=== PATIENT | male | born 1990 | race Caucasian/White ===

== ENCOUNTER 2017-07-15 15:36 | Emergency (ER) | payer OTHER ==
--- NOTE | 2017-07-15 16:46 | RADIOLOGY REPORT (SQ) ---
EXAM DESCRIPTION: CT HEAD WITHOUT COMPLETED DATE/TIME: 07/15/2017 4:32 pm REASON FOR STUDY: fall head injury COMPARISON: None. TECHNIQUE: Axial images acquired through the brain without intravenous contrast. Images reviewed wi th bone, brain and subdural windows. Images stored on PACS. All CT scanners at this facility use dose modulation, iterative reconstruction, and/or weight based d osing when appropriate to reduce radiation dose to as low as reasonably achievable (ALARA). [facility]: Dose Right [facility]: CareDose [facility]: Dose Right [facility]: Teradose 4D [facility]: [employer] RADIATION DOSE: CT Rad equipment meets quality standard of care and radiation dose reduction techniq ues were employed. CTDIvol: 64.6 mGy. DLP: 1034 mGy-cm. mGy. LIMITATIONS: None. FINDINGS: VENTRICLES: Normal size and contour. CEREBRUM: No masses. No hemorrhage. No midline shift. No evidence for acute infarction. Normal gra y/white matter differentiation. No areas of low density in the white matter. CEREBELLUM: No masses. No hemorrhage. No alteration of density. No evidence for acute infarction. EXTRAAXIAL SPACES: No fluid collections. No masses. ORBITS AND GLOBE: No intra- or extraconal masses. Normal contour of globe without masses. CALVARIUM: No fracture. PARANASAL SINUSES: No fluid or mucosal thickening. SOFT TISSUES: No mass or hematoma. OTHER: No other significant finding. IMPRESSION: NORMAL BRAIN CT WITHOUT CONTRAST. EVIDENCE OF ACUTE STROKE: NO. COMMENT: Quality ID # [id number]: Final reports with documentation of one or more dose reduction techniques (e.g., Automated exposure control, adjustment of the mA and/or kV according to patient size, use of iterative reconstruction technique) TECHNICAL DOCUMENTATION: JOB ID: [id number]- All Rights Reserved
--- NOTE | 2017-07-15 17:04 | ER Document Report ---
ED General - General Chief Complaint: Fall Stated Complaint: HEAD INJURY Time Seen by Provider: 07/15/17 16:15 TRAVEL OUTSIDE OF THE [place] IN LAST 30 DAYS: No - HPI Patient complains to provider of: Close head injury Notes: Patient coming in for evaluation close head injury. Patient states fell on some steps a few days ago this morning workup dizzy concerned about concussion however also is having some nausea patient denies any fevers chills vomiting or diarrhea. Patient ambulating without difficulty. No signs of acute distress upon my evaluation denies any medications denies any blood thinning medications. - Related Data Allergies/Adverse Reactions: No Known Allergies Allergy (Verified 07/15/17 15:52) Home Medications: Current Home Medications Bupropion HCl [Wellbutrin 75 Mg Tablet] 150 mg PO BID 07/15/17 [History] Past Medical History - Social History Smoking Status: Never Smoker Frequency of alcohol use: None Drug Abuse: None Family History: Reviewed & Not Pertinent Patient has suicidal ideation: No Patient has homicidal ideation: No Renal/ Medical History: Denies: Hx Peritoneal Dialysis Past Surgical History: Reports: Hx Tonsillectomy Review of Systems - Review of Systems Constitutional: Other - Head injury with nausea and dizziness EENT: No symptoms reported Cardiovascular: No symptoms reported Respiratory: No symptoms reported Gastrointestinal: No symptoms reported Genitourinary: No symptoms reported Male Genitourinary: No symptoms reported Musculoskeletal: No symptoms reported Skin: No symptoms reported Hematologic/Lymphatic: No symptoms reported Neurological/Psychological: No symptoms reported Physical Exam - Vital signs Vitals: Temp Pulse Resp BP Pulse Ox 98.5 F 65 16 151/81 H 99 07/15/17 15:49 07/15/17 15:49 07/15/17 15:49 07/15/17 15:49 07/15/17 15:49 Interpretation: Normal - General General appearance: Appears well, Alert - HEENT Head: Normocephalic, Atraumatic Eyes: Normal Pupils: PERRL - Respiratory Respiratory status: No respiratory distress Chest status: Nontender Breath sounds: Normal Chest palpation: Normal - Cardiovascular Rhythm: Regular Heart sounds: Normal auscultation Murmur: No - Abdominal Inspection: Normal Distension: No distension Bowel sounds: Normal Tenderness: Nontender Organomegaly: No organomegaly - Back Back: Normal, Nontender - Extremities General upper extremity: Normal inspection, Nontender, Normal color, Normal ROM , Normal temperature General lower extremity: Normal inspection, Nontender, Normal color, Normal ROM , Normal temperature, Normal weight bearing. No: Cyn's sign - Neurological Neuro grossly intact: Yes Cognition: Normal Orientation: AAOx4 Jim Coma Scale Eye Opening: Spontaneous [place] Coma Scale Verbal: Oriented [place] Coma Scale Motor: Obeys Commands Jim Coma Scale Total: 15 Speech: Normal Motor strength normal: LUE, RUE, LLE, RLE Sensory: Normal - Psychological Associated symptoms: Normal affect, Normal mood - Skin Skin Temperature: Warm Skin Moisture: Dry Skin Color: Normal Course - Re-evaluation Re-evalutation: 07/15/17 20:53 CT scan was negative. More likely postconcussive syndrome or concussive syndrome. Patient will be discharged home we will give meclizine for dizziness. Patient is to stay well-hydrated patient will be discharged home - Vital Signs Vital signs: Temp Pulse Resp BP Pulse Ox 97.7 F 69 18 129/77 H 98 07/15/17 17:14 07/15/17 17:14 07/15/17 17:14 07/15/17 17:14 07/15/17 17:14 Discharge - Discharge Clinical Impression: Closed head injury Qualifiers: Encounter type: initial encounter Qualified Code(s): S09.90XA - Unspecified injury of head, initial encounter Condition: Good Disposition: HOME, SELF-CARE Instructions: Concussion ([facility]), Head Injury Precautions ([facility]), Post-Concussion Syndrome ([facility]) Additional Instructions: Your CT scan does not show any signs of any significant pathology therefore we will discharge her home with meclizine to help out with your symptoms. More likely you have a postconcussive syndrome. This will take time to resolve. Prescriptions: Meclizine HCl [Antivert 25 mg Tablet] 25 mg PO TID PRN #21 tablet PRN Reason: Forms: Return to Work
[2017-07-15 17:17] VITALS: BP 129/77
== END 2017-07-15 17:14 | disposition home or self-care (01) ==
LOC: ER 15:36
DX: S09.90XA Unspecified injury of head, initial encounter (principal); R11.0 Nausea; R42 Dizziness and giddiness; W10.9XXA Fall (on) (from) unspecified stairs and steps, initial encounter
CPT/HCPCS: 70450; 99284

== ENCOUNTER 2017-08-18 21:35 | Emergency (ER) | payer OTHER ==
[2017-08-18 22:45] LABS: ABSOLUTE LYMPHOCYTES (AUTO) 1.4 10^3/uL (0.5-4.7); ABSOLUTE MONOCYTES (AUTO) 0.7 10^3/uL (0.1-1.4); ABSOLUTE NEUT (AUTO) 10.7 10^3/uL (1.7-8.2); BASOPHILS % (AUTO) 0.2 % (0-2); EOSINOPHILS % (AUTO) 0.4 % (0-6); HEMATOCRIT 44.4 % (37.9-51.0); HEMOGLOBIN 14.9 g/dL (13.5-17.0); LYMPHOCYTES % (AUTO) 11.1 % (13-45); MEAN CORPUSCULAR HEMOGLOBIN 29.5 pg (27.0-33.4); MEAN CORPUSCULAR HGB CONC 33.6 g/dL (32.0-36.0); MEAN CORPUSCULAR VOLUME 88 fl (80-97); MONOCYTES % (AUTO) 5.3 % (3-13); PLATELET COUNT 222 10^3/uL (150-450); RED BLOOD COUNT 5.05 10^6/uL (4.35-5.55); RED CELL DISTRIBUTION WIDTH 13.3 % (11.5-14.0); TOTAL CELLS COUNTED % (AUTO) 100 %; WHITE BLOOD COUNT 12.9 10^3/uL (4.0-10.5)
[2017-08-18 23:04] LABS: ALANINE AMINOTRANSFERASE 60 U/L (21-72); ALBUMIN 4.2 g/dL (3.5-5.0); ALKALINE PHOSPHATASE 107 U/L (38-126); ANION GAP 10 (5-19); ASPARTATE AMINO TRANSFERASE 34 U/L (17-59); BILIRUBIN,DIRECT 0.4 mg/dL (0.0-0.4); BILIRUBIN,TOTAL 0.6 mg/dL (0.2-1.3); BLOOD UREA NITROGEN 12 mg/dL (7-20); CALCIUM 9.6 mg/dL (8.4-10.2); CARBON DIOXIDE 29 mmol/L (22-30); CHLORIDE 100 mmol/L (98-107); GLUCOSE 110 mg/dL (75-110); POTASSIUM 4.5 mmol/L (3.6-5.0); SODIUM 138.5 mmol/L (137-145); TOTAL PROTEIN 7.5 g/dL (6.3-8.2)
[2017-08-18 23:07] LABS: APPEARANCE,URINE CLEAR; BILIRUBIN,URINE NEGATIVE (NEGATIVE); COLOR,URINE YELLOW; GLUCOSE, URINE NEGATIVE (NEGATIVE); KETONES,URINE TRACE mg/dL (NEGATIVE); LEUKOCYTE ESTERASE,URINE NEGATIVE (NEGATIVE); NITRITE,URINE NEGATIVE (NEGATIVE); PROTEIN,URINE NEGATIVE (NEGATIVE); URINE SPECIFIC GRAVITY 1.025
[2017-08-18] MEDS ORDERED: ONDANSETRON HCL INJ/PF 4 MG/2 ML SDV IV ONE (23:14)
[2017-08-18] MEDS ORDERED: NORMAL SALINE 1000 ML 1,000 ML IV ONE (23:14)
[2017-08-18] MEDS ORDERED: MORPHINE SULFATE 10 MG/ML INJ IV PRN (23:17)
[2017-08-18 23:38] LABS: LIPASE 128.8 U/L (23-300)
--- NOTE | 2017-08-19 00:10 | ER Document Report ---
ED General - General Chief Complaint: Nausea/Vomiting Stated Complaint: VOMITING/STOMACH PAIN Time Seen by Provider: 08/18/17 22:15 Notes: Patient is a 27-year-old male without past medical history, no prior surgical history who presents with 48 hours of right-sided abdominal pain with associated vomiting and diarrhea. Patient describes the pain being localized to the entire right side of his abdomen mostly to the right upper abdomen. He describes it as a severe, constant, throbbing pain. Nothing improves or worsens the pain. He notes he has had persistent vomiting and diarrhea in association with the abdominal pain. The symptoms did start prior to the onset of the abdominal pain. He has not seen his primary care doctor regarding today' s concerns. He did see an urgent care yesterday and was prescribed Zofran but states that this does not help his vomiting which is part of the reason he came to the emergency department today. He has not had any fever. TRAVEL OUTSIDE OF THE [place] IN LAST 30 DAYS: No - Related Data Allergies/Adverse Reactions: No Known Allergies Allergy (Verified 07/15/17 15:52) Past Medical History - General Information source: Patient - Social History Smoking Status: Never Smoker Frequency of alcohol use: None Drug Abuse: None Lives with: Spouse/Significant other Family History: Reviewed & Not Pertinent Renal/ Medical History: Denies: Hx Peritoneal Dialysis Past Surgical History: Reports: Hx Tonsillectomy Review of Systems - Review of Systems Notes: Constitutional: Negative for fever. HENT: Negative for sore throat. Eyes: Negative for visual changes. Cardiovascular: Negative for chest pain. Respiratory: Negative for shortness of breath. Gastrointestinal: Positive for abdominal pain, vomiting and diarrhea Genitourinary: Negative for dysuria. Musculoskeletal: Negative for back pain. Skin: Negative for rash. Neurological: Negative for headaches, weakness or numbness. 10 point ROS negative except as marked above and in HPI. Physical Exam - Vital signs Vitals: Temp Pulse BP Pulse Ox 98.7 F 75 134/86 H 99 08/18/17 22:12 08/18/17 22:12 08/18/17 22:12 08/18/17 22:12 Interpretation: Normal Notes: PHYSICAL EXAMINATION: GENERAL: Appears moderately uncomfortable but in no acute distress. HEAD: Atraumatic, normocephalic. EYES: Pupils equal round and reactive to light, extraocular movements intact, sclera anicteric, conjunctiva are normal. ENT: nares patent, oropharynx clear without exudates. Dry mucous membranes. NECK: Normal range of motion, supple without lymphadenopathy LUNGS: Breath sounds clear to auscultation bilaterally and equal. No wheezes rales or rhonchi. HEART: Regular rate and rhythm without murmurs ABDOMEN: Soft, focal tenderness the right upper and lower quadrants. There is some rebound in the right lower quadrant but no guarding. No rigidity of the abdomen. EXTREMITIES: Normal range of motion, no pitting or edema. No cyanosis. NEUROLOGICAL: No focal neurological deficits. Moves all extremities spontaneously and on command. PSYCH: Normal mood, normal affect. SKIN: Warm, Dry, normal turgor, no rashes or lesions noted. Course - Re-evaluation Re-evalutation: 08/19/17 00:09 Patient presents with 2 days of progressively worsening right upper and lower abdominal pain with associated vomiting. He arrives somewhat ill in appearance with focal tenderness the right upper and right lower quadrant. He is also some rebound of the right lower quadrant. Bedside ultrasound does not show any evidence of acute cholecystitis. Labs are overall unremarkable without any evidence of an acute biliary or hepatitis pathology. There is no evidence of pancreatitis. I am concerned the patient may have an acute appendicitis given clinical history and exam. Will proceed with CT abdomen pelvis and reassess 08/19/17 02:36 CT abdomen pelvis does not demonstrate any evidence of a localized colitis or an acute appendicitis. I remained concerned about the degree of patient's right upper quadrant abdominal pain on repeat exam so a formal right upper quadrant ultrasound was performed that did not demonstrate any evidence of an acute cholecystitis. On now repeat abdominal examination patient overall is much improved with some mild generalized right-sided abdominal tenderness but not to the degree on initial presentation. He has tolerated oral intake without difficulty. At this point given his persistent vomiting and diarrhea I suspect likely viral gastroenteritis associated abdominal cramping. Patient does have a possible urinary tract infection on urinalysis and does report some dysuria. This to be atypical as he is a young male without any risk factors for urinary tract infection. However I sent a culture and will empirically treat with cephalexin for a 5 day course. At this time will discharge with return precautions and follow-up recommendations. Verbal discharge instructions given a the bedside and opportunity for questions given. Medication warnings reviewed. Patient is in agreement with this plan and has verbalized understanding of return precautions and the need for primary care follow-up in the next 24-72 hours. 08/19/17 02:40 - Vital Signs Vital signs: Temp Pulse Resp BP Pulse Ox 98.5 F 65 18 139/87 H 99 08/19/17 03:12 08/19/17 03:12 08/19/17 03:12 08/19/17 03:12 08/19/17 03:12 - Laboratory Result Diagrams: 08/18/17 22:30 08/18/17 22:30 Laboratory results interpreted by me: 08/18/17 08/18/17 22:30 22:30 WBC 12.9 H Seg Neutrophils % 83.0 H Lymphocytes % 11.1 L Absolute Neutrophils 10.7 H Urine Ketones TRACE H Urine Urobilinogen 2.0 H - Diagnostic Test Radiology reviewed: Reports reviewed Discharge - Discharge Clinical Impression: Vomiting and diarrhea, Right sided abdominal pain Urinary tract infection Qualifiers: Urinary tract infection type: site unspecified Hematuria presence: without hematuria Qualified Code(s): N39.0 - Urinary tract infection, site not specified Condition: Good Disposition: HOME, SELF-CARE Additional Instructions: Your symptoms are likely due to a viral illness and should resolve in the next several days. Your CT scan of the abdomen pelvis is normal. Your ultrasound of her gallbladder is also normal. Your labs do not show any significant abnormalities. You can take [id number] loperamide also known as Imodium as needed for diarrhea per box instructions. Continue to stay hydrated with plenty of solution such as Gatorade or Pedialyte. Please return if you develop severe abdominal pain, pass out, become unable to tolerate any oral fluids for 12 more hours, or any other symptoms that are concerning to you. Prescriptions: Cephalexin Monohydrate [Keflex 500 mg Capsule] 500 mg PO Q6H 5 Days capsule
--- NOTE | 2017-08-19 00:45 | RADIOLOGY REPORT (SQ) ---
EXAM DESCRIPTION: CT ABDOMEN AND PELVIS WITH CONTRAST CLINICAL HISTORY: Diffuse abdominal pain COMPARISON: None Available. TECHNIQUE: CT of the abdomen and pelvis are performed during IV bolus administration of 100.2 mL of Isovue-370. DLP: 2403.89 mGycm FINDINGS: Abdomen: The liver has normal size and density. No intrahepatic mass or biliary dilatation. No calcified gallstones. The spleen, pancreas, and adrenal glands are unremarkable. Bosniak class I left renal cyst. No hydronephrosis or enhancing masses. The aorta and IVC have normal caliber and position. The portal vein patent. The proximal visceral and renal arteries are patent. No free intraperitoneal air. The stomach and duodenum have normal course. Pelvis: Prostate is not enlarged. Urinary bladder is unremarkable. No free pelvic fluid or lymphadenopathy. No dilated loops of large or small bowel. Normal appendix. The visualized lung bases are clear. No destructive bone lesions identified. Mild degenerative spondylosis of the visualized thoracic and lumbar spine. IMPRESSION: 1. No acute inflammatory or obstructive abnormality identified. This exam was performed according to our departmental dose-optimization program, which includes automated exposure control, adjustment of the mA and/or kV according to patient size and/or use of iterative reconstruction technique.
--- NOTE | 2017-08-19 01:58 | RADIOLOGY REPORT (SQ) ---
EXAM DESC EXAM DESCRIPTION: U/S ABDOMEN LIMITED W/O DOP CLINICAL HISTORY: eval ruq pain COMPARISON: None. TECHNIQUE: Real-time sonographic images of the right upper abdomen were obtained using a curved multihertz transducer. FINDINGS: The visualized portions of the pancreas are unremarkable. The visualized portions of the aorta and IVC are unremarkable. The liver has normal contour and echogenicity. Hepatopedal flow in the portal vein. Common bile duct measures 0.4 cm. The gallbladder has a normal appearance. No gallstones identified. No wall thickening or pericholecystic fluid. Negative reported sonographic Hopkins sign. The right kidney measures 12.4 cm in length. No hydronephrosis, solid renal mass, or shadowing calculi. IMPRESSION: 1. No abnormality in the right upper abdomen identified.
[2017-08-19] MEDS ORDERED: HYDROCODONE/ACETAMINOPHEN 5-325 MG (6 TAB/ER DISP) PO PRN (02:38)
[2017-08-19 03:34] VITALS: BP 139/87
== END 2017-08-19 03:12 | disposition home or self-care (01) ==
LOC: ER 21:35
DX: N39.0 Urinary tract infection, site not specified (principal); R10.11 Right upper quadrant pain; R10.31 Right lower quadrant pain; R19.7 Diarrhea, unspecified; R11.2 Nausea with vomiting, unspecified
CPT/HCPCS: 99284; 96361; 96374; 96375; 36415; 87086; 83690; 85025; 80053; 81001; 76705; 74177; J2270; J2405; J7030